=== PATIENT | female | born 1965 | race Caucasian/White ===

== ENCOUNTER 2017-11-01 13:10 | Outpatient (CLI) | payer OTHER | END 2017-11-01 17:17 | disposition home or self-care (01) | LOC: SCA 13:10 | PROVIDERS: ATTEND Family Medicine | DX: R01.1 Cardiac murmur, unspecified (principal); E78.5 Hyperlipidemia, unspecified | CPT/HCPCS: 93306 ==

== ENCOUNTER 2017-11-06 13:22 | Outpatient (CLI) | payer OTHER | END 2017-11-06 20:13 | disposition home or self-care (01) | LOC: SRD 13:22 | PROVIDERS: ATTEND Family Medicine | DX: M25.512 Pain in left shoulder (principal); M25.532 Pain in left wrist; I08.3 Combined rheumatic disorders of mitral, aortic and tricuspid valves | CPT/HCPCS: 73030 ==

== ENCOUNTER 2020-03-04 10:39 | Emergency (ER) | payer OTHER ==
[~2020-03-04] VITALS: Ht 157.5 cm; Wt 68.0 kg
[2020-03-04 10:45] VITALS: BP_SYST 137
[2020-03-04] MEDS ORDERED: NACL 0.9% 1,000 ML IV ONE (11:11)
[2020-03-04] MEDS ORDERED: KETOROLAC TROMETHAMINE 30 MG VIAL IVP ONE (11:15)
[2020-03-04 11:49] LABS: BASOPHILS # (AUTO) 0.1 K/uL (0.0-0.2); BASOPHILS % (AUTO) 0.8 % (0.0-2.0); EOSINOPHILS % (AUTO) 0.5 % (0.0-4.0); HEMATOCRIT 40.6 % (36-48); HEMOGLOBIN 13.4 g/dL (12.0-16.0); LYMPHOCYTES # (AUTO) 2.1 K/uL (1.0-5.5); LYMPHOCYTES % (AUTO) 26.2 % (20.5-51.5); MEAN CORPUSCULAR HEMOGLOBIN 30 pg (27-31); MEAN CORPUSCULAR HGB CONC 33 % (32-36); MEAN CORPUSCULAR VOLUME 90 fL (79.0-98.0); MONOCYTES # (AUTO) 0.5 K/uL (0.0-1.0); MONOCYTES % (AUTO) 6.5 % (1.7-9.3); NEUTROPHILS # (AUTO) 5.4 K/uL (1.8-7.7); PLATELET COUNT (AUTO) 294 K/uL (130-430); RED BLOOD CELL COUNT(AUTO) 4.51 MIL/uL (4.2-6.2); RED CELL DISTRIBUTION WIDTH 14.1 % (9.0-15.0); WHITE BLOOD COUNT (AUTO) 8.1 K/uL (4.8-10.8)
[2020-03-04 11:54] LABS: CALCIUM 8.9 mg/dL (8.4-11.0); CREATININE 0.83 mg/dL (0.55-1.30); POTASSIUM 3.3 mmol/L (3.5-5.1)
[2020-03-04 11:59] LABS: TOTAL BILIRUBIN 0.8 mg/dL (0.0-1.0)
[2020-03-04 13:26] VITALS: BP_SYST 131
== END 2020-03-04 13:27 | disposition home or self-care (01) ==
LOC: SED 10:39
DX: K57.92 Diverticulitis of intestine, part unspecified, without perforation or abscess without bleeding (principal); E78.00 Pure hypercholesterolemia, unspecified; I10 Essential (primary) hypertension; E07.9 Disorder of thyroid, unspecified
CPT/HCPCS: 36415; 74176; 80053; 81002; 85025; 87040; 96374; 99284; J1885; J7030

== ENCOUNTER 2023-04-18 12:47 | Emergency (ER) | payer BC, OTHER ==
[~2023-04-18] VITALS: Ht 162.6 cm; Wt 70.8 kg
[2023-04-18 13:01] VITALS: BP_SYST 158; PULSE 60; RESP 16; TEMP 98; O2SAT 99
--- NOTE | 2023-04-18 14:15 | NUR ---
Patient to ER bed 5 to gown for evaluation. Side rails up. Report given to ROMANA PITTS.
--- NOTE | 2023-04-18 14:17 | NUR ---
PT BIB AWAKE AND ALERT AOX4. PT C/O PAIN TO L KNEE 6/10 PAIN. PT DENIES TRAUMA. PT DENIES HX ANDSX.
--- NOTE | 2023-04-18 14:20 | NUR ---
ER at bedside examining patient.
[2023-04-18] MEDS ORDERED: NAPR-690 PO (15:25)
[2023-04-18 15:57] VITALS: BP_SYST 158; PULSE 60; RESP 16; TEMP 98; O2SAT 99
--- NOTE | 2023-04-18 15:59 | NUR ---
Patient given written and verbal discharge instructions and verbalizes understanding. ER MD DR MACKEY discussed with patient the results and treatment provided. Patient in stable condition. ID arm band removed. Rx of NAPROXEN given. Patient educated on pain management and to follow up with PMD. Pain Scale 3/10. Opportunity for questions provided and answered. Medication side effect fact sheet provided.
== END 2023-04-18 15:59 | disposition home or self-care (01) ==
LOC: SED 12:47
DX: M25.562 Pain in left knee (principal); I10 Essential (primary) hypertension; Z79.899 Other long term (current) drug therapy
CPT/HCPCS: 73560-TC; 99283

== ENCOUNTER 2023-07-07 16:09 | Emergency (ER) | payer BC ==
[~2023-07-07] VITALS: Ht 152.4 cm; Wt 60.8 kg
[~2023-07-07 16:09] MED LIST: NAPR-690 PO
[2023-07-07 16:14] VITALS: BP_SYST 168; PULSE 59; RESP 18; TEMP 98.2; O2SAT 97
[2023-07-07] MEDS ORDERED: ASPIRIN 81 MG TAB.CHEW PO ONE (18:45)
[2023-07-07] MEDS ORDERED: cloNIDine HCL 0.1 MG TABLET PO ONE (19:15)
[2023-07-07 19:17] LABS: BASOPHILS # (AUTO) 0.2 K/uL (0.0-0.2); BASOPHILS % (AUTO) 3.5 % (0.0-2.0); EOSINOPHILS # (AUTO) 0.1 K/uL (0.0-0.4); EOSINOPHILS % (AUTO) 1.5 % (0.0-4.0); HEMATOCRIT 41.2 % (36-48); HEMOGLOBIN 13.6 g/dL (12.0-16.0); LYMPHOCYTES # (AUTO) 2.2 K/uL (1.0-5.5); LYMPHOCYTES % (AUTO) 47.8 % (20.5-51.5); MEAN CORPUSCULAR HEMOGLOBIN 30 pg (27-31); MEAN CORPUSCULAR HGB CONC 33 % (32-36); MEAN CORPUSCULAR VOLUME 91 fL (79.0-98.0); MONOCYTES # (AUTO) 0.3 K/uL (0.0-1.0); MONOCYTES % (AUTO) 6.9 % (1.7-9.3); NEUTROPHILS # (AUTO) 1.9 K/uL (1.8-7.7); NEUTROPHILS % (AUTO) 40.3 % (40.0-70.0); PLATELET COUNT (AUTO) 325 K/uL (130-430); RED BLOOD CELL COUNT(AUTO) 4.55 MIL/uL (4.2-6.2); RED CELL DISTRIBUTION WIDTH 14.4 % (9.0-15.0); WHITE BLOOD COUNT (AUTO) 4.6 K/uL (4.8-10.8)
[2023-07-07 19:22] LABS: ANION GAP 9 (5-15); CALCIUM 9.2 mg/dL (8.4-11.0); CARBON DIOXIDE 28 mmol/L (23-29); CHLORIDE 103 mmol/L (98-107); CREATININE 0.65 mg/dL (0.55-1.30); GFR AFRICAN AMERICAN 121 mL/min (>90); GLUCOSE 107 mg/dL (74-106); POTASSIUM 3.4 mmol/L (3.5-5.1); SODIUM SERUM 140 mmol/L (136-145); UREA NITROGEN, BLOOD 8 mg/dL (8-21)
[2023-07-07 19:23] LABS: GFR NON AFRICAN-AMERICAN 100 mL/min (>90)
[2023-07-07 19:29] LABS: ALANINE AMINOTRANSFERASE 26 U/L (12-78); ALBUMIN 3.9 g/dL (3.4-4.8); ASPARTATE AMINOTRANSFERASE 16 U/L (10-37); TOTAL BILIRUBIN 0.5 mg/dL (0.0-1.0); TOTAL PROTEIN, SERUM 7.8 g/dL (6.4-8.3)
[2023-07-07 22:05] VITALS: BP_SYST 103; PULSE 62; RESP 18; TEMP 97.5; O2SAT 98
== END 2023-07-07 22:05 | disposition home or self-care (01) ==
LOC: SED 16:09
DX: R42 Dizziness and giddiness (principal); R51.9 Headache, unspecified; I10 Essential (primary) hypertension; Z79.899 Other long term (current) drug therapy
CPT/HCPCS: 36415; 71045; 80053; 83880; 84484; 85025; 93005; 99285